=== PATIENT | female | born 1980 | race Caucasian/White ===

== ENCOUNTER 2024-09-29 18:44 | Emergency (ER) | payer MEDICAID ==
[~2024-09-29] VITALS: Ht 167.6 cm; Wt 82.0 kg
[2024-09-29 18:57] VITALS: O2SAT 97
[2024-09-29 20:15] LABS: BASOPHILS % 0.7 % (0.0-2.0); EOSINOPHILS % 0.7 % (0.0-5.0); HEMATOCRIT. 32.5 % (36.0-48.0); MEAN CORPUSCULAR HEMOGLOBIN 21.4 pg (28.0-32.0); MEAN CORPUSCULAR HGB CONC 30.7 g/dL (31.0-37.0); MEAN CORPUSCULAR VOLUME 69.6 fL (81.0-99.0); MEAN PLATELET VOLUME 7.6 fl (7.4-10.4); MONOCYTES % 7.9 % (2.0-8.0); NEUTROPHILS % 64.7 % (40.0-76.0); PLATELET 178 x1000/uL (130-400); RED BLOOD CELL COUNT 4.67 mill/uL (4.2-5.4); RED CELL DISTRIBUTION WIDTH 17.8 % (11.6-14.6); WHITE BLOOD COUNT 6.5 x1000/uL (4.5-11.0)
[2024-09-29 20:19] LABS: ADD RBC MORPHOLOGY YES; DIFFERENTIAL COMMENT 1
[2024-09-29 20:20] LABS: CHLORIDE 102 mEq/L (98-107); POTASSIUM 3.2 mEq/L (3.5-5.1); SODIUM 136 mEq/L (136-145)
[2024-09-29 20:21] LABS: CALCIUM 9.2 mg/dL (8.7-10.4); CARBON DIOXIDE 25 mEq/L (21-32)
[2024-09-29 20:26] LABS: GLUCOSE 94 mg/dL (70-105); UREA NITROGEN BLOOD 15 mg/dL (9-23)
[2024-09-29 20:27] LABS: TROPONIN I HIGH SENSITIVITY 9 ng/L (3.0-34)
[2024-09-29] MEDS ORDERED: POTASSIUM CHLORIDE 20MEQ/PACKET PO ONE (20:45)
[2024-09-29 21:01] LABS: ANISOCYTOSIS 1+; HYPOCHROMASIA 2+; MICROCYTOSIS 3+; OVALOCYTES 1+; PLATELET ESTIMATE NORMAL
[2024-09-29 22:58] LABS: TROPONIN I HIGH SENSITIVITY 9 ng/L (3.0-34)
[2024-09-30] MEDS: POTASSIUM CHLORIDE 20MEQ/PACKET PO NR (00:15)
[2024-09-30 00:16] VITALS: BP 140/99; PULSE 92; RESP 18; TEMP 36.66960; O2SAT 97
[2024-09-30] MEDS ORDERED: ONDA-239 PO (10:33)
[2024-09-30] MEDS ORDERED: CEFP200T13 MT (10:33)
[2024-09-30] MEDS ORDERED: NAPR-1486 MT (10:33)
== END 2024-09-30 00:22 | disposition home or self-care (01) ==
LOC: ER 18:44
DX: R07.9 Chest pain, unspecified (principal); E87.6 Hypokalemia; F41.9 Anxiety disorder, unspecified
CPT/HCPCS: 36415; 71045; 80048; 83880; 84484; 85025; 93005; 99285

== ENCOUNTER 2024-09-30 03:54 | Emergency (ER) | payer MEDICAID ==
[~2024-09-30] VITALS: Ht 170.2 cm; Wt 73.0 kg
[2024-09-30 04:08] VITALS: O2SAT 100
[2024-09-30 04:21] LABS: CLARITY URINE CLEAR (CLEAR); COLOR URINE YELLOW (YELLOW); GLUCOSE URINE NEGATIVE (NEGATIVE); KETONES URINE NEGATIVE (NEGATIVE); LEUKOCYTE ESTERASE URINE 2+ (NEGATIVE); NITRITE URINE NEGATIVE (NEGATIVE); OCCULT BLOOD URINE NEGATIVE (NEGATIVE); PROTEIN URINE TRACE (NEGATIVE); SPECIFIC GRAVITY URINE 1.009 (1.005-1.030)
[2024-09-30 04:33] LABS: BASOPHILS % 0.8 % (0.0-2.0); EOSINOPHILS % 0.8 % (0.0-5.0); HEMATOCRIT. 31.9 % (36.0-48.0); HEMOGLOBIN. 9.9 g/dL (12.0-16.0); MEAN CORPUSCULAR HEMOGLOBIN 21.7 pg (28.0-32.0); MEAN PLATELET VOLUME 7.2 fl (7.4-10.4); MONOCYTES % 7.5 % (2.0-8.0); NEUTROPHILS % 64.9 % (40.0-76.0); PLATELET 184 x1000/uL (130-400); RED BLOOD CELL COUNT 4.56 mill/uL (4.2-5.4); RED CELL DISTRIBUTION WIDTH 17.6 % (11.6-14.6); WHITE BLOOD COUNT 7.4 x1000/uL (4.5-11.0)
[2024-09-30 04:37] LABS: CHLORIDE 103 mEq/L (98-107); POTASSIUM 3.4 mEq/L (3.5-5.1); SODIUM 136 mEq/L (136-145)
[2024-09-30 04:38] LABS: CARBON DIOXIDE 24 mEq/L (21-32)
[2024-09-30 04:39] LABS: CALCIUM 9.3 mg/dL (8.7-10.4)
[2024-09-30 04:43] LABS: CREATININE 0.9 mg/dL (0.6-1.0)
[2024-09-30 04:44] LABS: GLUCOSE 101 mg/dL (70-105); UREA NITROGEN BLOOD 14 mg/dL (9-23)
[2024-09-30 04:45] LABS: ALANINE AMINOTRANSFERASE 61 IU/L (10-49); ALBUMIN 4.9 g/dL (3.2-4.8); ASPARTATE AMINOTRANSFERASE 87 IU/L (<34)
[2024-09-30 04:46] LABS: BILIRUBIN DIRECT 0.4 mg/dL (<=3.0); BILIRUBIN TOTAL 1.1 mg/dL (0.1-1.0); PROTEIN TOTAL 8.5 g/dL (6.0-8.3)
[2024-09-30 05:31] LABS: DIFFERENTIAL COMMENT 1
[2024-09-30 05:55] LABS: SQUAMOUS EPITHELIAL CELL URINE 2+ /lpf (RARE/1+)
[2024-09-30 06:01] LABS: BACTERIA URINE TRACE; RBC URINE 0-2 /hpf (0-2); WBC URINE 15-25 /hpf (0-2)
[2024-09-30 08:43] LABS: HCG SCREEN NEGATIVE
[2024-09-30 09:18] LABS: TROPONIN I HIGH SENSITIVITY 4 ng/L (3.0-34)
[2024-09-30] MEDS ORDERED: NAPR-1486 MT (10:33)
[2024-09-30] MEDS ORDERED: ONDA-239 PO (10:33)
[2024-09-30] MEDS ORDERED: CEFP200T13 MT (10:33)
[2024-09-30 10:37] VITALS: BP 145/87; PULSE 88; RESP 20; TEMP 36.89184; O2SAT 100
== END 2024-09-30 10:38 | disposition home or self-care (01) ==
LOC: ER 03:54
DX: N39.0 Urinary tract infection, site not specified (principal); F41.9 Anxiety disorder, unspecified; I10 Essential (primary) hypertension
CPT/HCPCS: 80076; 80048; 81003; 84703; 83690; 85025; 85379; 87086; 84484; 87077; 36415; 71045; 74176; 93005; 99285; Z7610